=== PATIENT | male | born 1950 | race Caucasian/White ===

== ENCOUNTER → 2016-07-14 | Outpatient (CLI) | payer BC ==
[~2016-07-14] MED LIST: REGADENOSON 0.4 MG/5 ML DISP.SYRIN. IV ONE
== END | disposition home or self-care (01) ==
LOC: PCVCIMAG 08:40
PROVIDERS: ATTEND Internal Medicine
DX: I25.10 Atherosclerotic heart disease of native coronary artery without angina pectoris (principal); R06.00 Dyspnea, unspecified; Z95.1 Presence of aortocoronary bypass graft
CPT/HCPCS: 78452; 93017; 93306; A9500; J2785

== ENCOUNTER → 2018-02-04 | Outpatient (CLI) | payer BC ==
--- NOTE | 2018-02-04 13:04 | PCVCIMAG ---
APPROVED REPORT Imaging Protocol: Rest Tc-99m/Stress Tc-99m 1 day Study performed: 02/04/2018 08:49:06 Indication: Abnormal EKG, Chest Discomfort Patient Location: Out-Patient Stress Nurse: Rocio Fountain RN, Nicole Ribear RN [place] Tech:Rohith Reza [facility] Ht: 5 ft 11 in Wt: 143 lbs BSA: 1.83 m2 HR: 70 bpm BP: 163/73 mmHg BMI: 19.9 Medical History Medications: Albuterol, ASA, Lisinopril, Requip, Simvastatin, Verapamil, Tamsulosin Allergies: Advil Cardiac Risk Factors: Age, Tobacco History (Former) Pretest Chest Pain Characteristics: No chest pain Exercise History: Sedentary Physical Disabilities: Lung Status Resting Data Rest SPECT myocardial perfusion imaging was performed in supine position 45 minutes following the intravenous injection of 10.6 mCi of Tc-99m Sestamibi. Time of rest injection: 814 Date: 02/04/2018 Administration Route: IV Administration Site: Right Hand Pharmacologic Stress Pharmacologic stress test was performed by injecting Regadenoson 0.4 mg IV push over 10-15 seconds immediately followed by the intravenous injection of 33.7 mCi of Tc-99m Sestamibi. Time of stress injection: 944 Date: 02/04/2018 Administration Route: IV Administration Site: Right Hand Gated Stress SPECT was performed 45 minutes after stress injection. The images were gated to evaluate regional wall motion and calculate left ventricular ejection fraction. Comments PRIOR NUC 07/2016: LOW RISK FOR ACTIVE ISCHEMIA. PT HAS RESTLESS LEG SYNDROME, UNABLE TO HOLD STILL FOR IMAGING. Stress Test Details Stress Test: Pharmacologic stress testing performed using 0.4 mg of regadenoson per 5 mL given IV over 10 seconds. Reason for pharmacologic stress test: Lung Status. HRMax Heart Rate (APMHR): 155 bpm Resting HR: 70 bpmTarget HR (85% APMHR): 131 bpm Max HR Achieved: 102 bpm % of APMHR: 65 Recovery HR: 85 bpm BP Resting BP: 163/73 mmHg Recovery BP: 134/73 mmHg ECG Resting ECG: Sinus Rhythm Stress ECG: Sinus Rhythm Arrhythmia: PVCs Recovery ECG: Sinus Rhythm Clinical Reason for Termination: Completed protocol Stress Symptoms: Dyspnea, Lightheaded Exercise duration: 0 min 55 sec Symptoms resolved with caffeine. Stress ECG Conclusion 1. Adequate response to IV Lexiscan 2. Inadequate heart rate for ECG diagnosis Study Data Post stress, the left ventricular ejection was 59%.. SSS: 3 SRS: 4 SDS: 2 TID = 0.73. Perfusion There is a medium area of moderately reduced uptake in the entire segment of the anterolateral wall which is seen on the stress images and improves on the resting images. This area thickens and moves normally and is most consistent with ischemia although artifact cannot be excluded. Wall Motion Normal left ventricular wall motion. Nuclear Conclusion ECG Findings: non-diagnostic Clinical Findings: negative for ischemia Nuclear Findings: equivocal Exercise Capacity: not assessed Left Ventricular Function: normal 1. Intermediate risk study based on a narrow region of improve perfusion involving the anterolateral and anterolateral palomino. Clinical correlation suggested Interpreted by: Rona Ndiaye MD Electronically Approved: 02/04/2018 13:04:11 <Conclusion> 1. Adequate response to IV Lexiscan 2. Inadequate heart rate for ECG diagnosis
== END | disposition home or self-care (01) ==
LOC: PCVCIMAG 13:56
PROVIDERS: ATTEND Internal Medicine
DX: R07.89 Other chest pain (principal); R94.31 Abnormal electrocardiogram [ECG] [EKG]
CPT/HCPCS: 78452; 93017; A9500; J2785